=== PATIENT | male | born 1940 | race Caucasian/White ===

== ENCOUNTER 2017-04-26 10:58 | Outpatient (CLI) | payer MEDICARE, OTHER ==
--- NOTE | 2017-04-26 12:12 | Ultrasound Report ---
THYROID ULTRASOUND: 04/26/2017 CLINICAL INDICATION: Hypothyroidism. TECHNIQUE: Real-time scanning was performed with labor relations representative static images obtained. FINDINGS: The right lobe of the thyroid measures 4.2 x 1.7 x 1.8 cm, and the left lobe measures 3.8 x 1.5 x 1.4 cm. The isthmus measures 4 mm. No focal parenchymal lesion is seen. No adenopathy is appr eciated. IMPRESSION: NORMAL THYROID ULTRASOUND. JOB #: [id number] EXT JOB #:[id number]
== END 2017-04-26 10:59 | disposition home or self-care (01) ==
LOC: DI 10:58
PROVIDERS: ATTEND Family Medicine
DX: E03.9 Hypothyroidism, unspecified (principal)
CPT/HCPCS: 76536

== ENCOUNTER 2017-12-30 08:26 | Emergency (ER) | payer MEDICARE, OTHER ==
[2017-12-30] MEDS ORDERED: BUFFERED LIDOCAINE 10 ML SYRINGE SUBQ STA (09:39)
[2017-12-30] MEDS ORDERED: BACITRACIN OINT TOP STA (11:11)
--- NOTE | 2017-12-30 11:32 | ED Physician Documentation ---
History of Present Illness - Stated complaint Stated Complaint: HAND LAC - Chief complaint Chief Complaint: Laceration - Additonal information Additional information: hx from pt cut hand on metal trailer last night palmar aspect R index prox phalanx tdap UTD Review of Systems Skin: reports: Laceration (s) PD PAST MEDICAL HISTORY - Past Medical History Past Medical History: Yes Cardiovascular: Other - Present Medications Home Medications: Ambulatory Orders Medication Instructions Recorded Confirmed Cephalexin [Keflex] 500 mg PO Q6H 3 Days #11 capsule 12/30/17 amLODIPine [Norvasc] 25 mg PO DAILY 12/30/17 12/30/17 - Allergies Allergies/Adverse Reactions: Allergies Allergy/AdvReac Type Severity Reaction Status Date / Time No Known Drug Allergies Allergy Verified 12/30/17 08:50 - Social History Does the pt smoke?: No Smoking Status: Never smoker Does the pt drink ETOH?: Yes Does the pt have substance abuse?: No - Immunizations Immunizations are current?: Yes PD ED PE NORMAL - Vitals Vital signs reviewed: Yes - Extremities Extremities: Other (approx 3 cm U shaped lac palmar aspect prox phalanx R index , MSV intact, no FB seen or palpated, tendion fxn intact) Results - Vitals Vitals: Vital Signs - 24 hr 12/30/17 08:47 Temperature 36.6 C Heart Rate 82 Respiratory 16 Rate Blood Pressure 140/72 H O2 Saturation 97 Oxygen O2 Source Room air Procedures - Laceration (location) R index Length in cm: 3 Wound type: Curved Neurovascular status: Sensory intact Tendon involvement: Tendon intact Anesthesia: Lidocaine 1%, Volume - enter cc (4), OTH (dig block) Wound Preparation: Irrigated copiously NS (by nurse) Skin layer closure: Nylon, Size #-0 - enter number (4), Sutures - enter # (4) Other: Patient tolerated well, No complications, Neurovascular intact, Dressing applied, Tetanus UTD Complexity: Simple Departure - Departure Disposition: 01 Home, Self Care Clinical Impression: Laceration Condition: Good Instructions: ED Laceration Hand Follow-Up: Axel De Jseus MD [Primary Care Provider] - (for a wound check this week and for suture removal in about 10 days) Prescriptions: Cephalexin [Keflex] 500 mg PO Q6H 3 Days #11 capsule Comments: Because the injury happened last night, this wound is at risk for infection Your nurse carefully irrigated the wound and I prescribed prophylactic antibiotics to try and minimize the risk for infection. But it needs to be watched carefully - please see your PMD for a wound check this week. Please come back to the ER for any redness swelling discharge etc
[2017-12-30] MEDS ORDERED: cephALEXin 250 MG CAPSULE PO STA (11:33)
[2017-12-30 11:46] VITALS: BP 136/73
== END 2017-12-30 11:45 | disposition home or self-care (01) ==
LOC: ED 08:26
DX: S61.411A Laceration without foreign body of right hand, initial encounter (principal); W45.8XXA Other foreign body or object entering through skin, initial encounter
CPT/HCPCS: 12001; 99283; A9270

== ENCOUNTER 2018-05-07 11:31 | Outpatient (CLI) | payer MEDICARE, OTHER ==
--- NOTE | 2018-05-08 09:27 | XRAY Report ---
Procedure Date: 05/07/2018 Accession Number: [id number] / [id number] Procedure: XR - Hip w/Pelvis 2-3V LT CPT Code: FULL RESULT: EXAM: LEFT HIP AND PELVIS RADIOGRAPHY EXAM DATE: 05/07/2018 12:10 PM. HISTORY: LEFT HIP LOW BACK PAIN. COMPARISONS: None. TECHNIQUE: 1 view of the pelvis and 1 view of the hip. FINDINGS: Bones: Normal. No fracture or bone lesion. Joints: Minimal bilateral hip joint space narrowing with marginal lipping. Unremarkable SI joints and pubic symphysis. Prominent degenerative changes in the lower lumbar spine, including degenerative disk disease at L4-L5. Soft Tissues: Unremarkable. IMPRESSION: Minimal degenerative changes of the hips. RADIA
--- NOTE | 2018-05-08 09:30 | XRAY Report ---
Procedure Date: 05/07/2018 Accession Number: [id number] / [id number] Procedure: XR - Lumbar Spine 2 View CPT Code: FULL RESULT: EXAM: LUMBOSACRAL SPINE RADIOGRAPHY EXAM DATE: 05/07/2018 12:10 PM. CLINICAL HISTORY: LOW BACK Pain, lt HIP PAIN. COMPARISONS: 03/11/2009. TECHNIQUE: 2 views. FINDINGS: Alignment: Mild scoliosis. No listhesis. Bones: 5 lumbar vertebrae. No fractures or bone lesions. Disks: Marked disk space narrowing at L4-L5 with degenerative changes. Other lumbar disk spaces well preserved. Marginal lipping at all levels. Facets: Degenerative changes most marked at L4-L5 and L5-S1. Sacroiliac Joints: Unremarkable. Soft Tissues: Unremarkable. IMPRESSION: Mild scoliosis with lower lumbar degenerative changes including degenerative disk disease at L4-L5. RADIA
== END 2018-05-07 11:32 | disposition home or self-care (01) ==
LOC: DI 11:31
PROVIDERS: ATTEND Family Medicine
DX: M51.36 Other intervertebral disc degeneration, lumbar region (principal); M41.86 Other forms of scoliosis, lumbar region; M25.552 Pain in left hip
CPT/HCPCS: 72100

== ENCOUNTER 2022-08-16 10:15 | Outpatient (CLI) | payer MEDICARE, OTHER ==
--- NOTE | 2022-08-16 14:41 | XRAY Report ---
PROCEDURE: Lumbar Spine 2 View INDICATIONS: SPINE XRAY TECHNIQUE: 2 views of the lumbar spine were acquired. COMPARISON: 05/07/2018 FINDINGS: Bones: 5 [id number] vertebrae are present. There is normal bony alignment. No vertebral body compression fractures. No suspicious bony lesions. Extensive degenerative change, with multilevel d isc space loss and prominent lower lumbar facet arthropathy. Suspect possible canal stenosis. Soft tissues: Overlying bowel gas pattern is normal. No suspicious soft tissue calcifications. IMPRESSION: No evidence acute bony abnormality of the lumbar spine. Extensive degenerative change. S uspect canal stenosis. Comment: Lumbar spine MRI may potentially be helpful. Reviewed by: Anthony Terry MD on 08/16/2022 2:40 PM PST Approved by: Anthony Terry MD on 08/16/2022 2:40 PM PST Station ID: [id number]
--- NOTE | 2022-08-16 14:46 | XRAY Report ---
PROCEDURE: Hip w/Pelvis 2-3V RT INDICATIONS: LOW BACK PAIN TECHNIQUE: AP pelvis with AP and lateral view(s) of the right hip(s). COMPARISON: Pelvis and left hip dated 05/07/2018 FINDINGS: Bones: No fractures or dislocations. Pelvic ring appears intact. No suspicious bony lesions. Progr essive bilateral hip degenerative change. Moderately severe bilateral hip degenerative joint space lo ss. Soft tissues: The visualized bowel gas pattern is normal. No suspicious soft tissue calcifications. IMPRESSION: Progressive bilateral hip degenerative change with moderately severe joint space loss. N o evidence acute bony abnormality of the pelvis and right hip. If clinical suspicion and/or symptoms persist, further assessment with repeat plain films or advanced imaging (e.g., CT, MRI, or bone scan) may be helpful for further assessment. Reviewed by: Anthony Terry MD on 08/16/2022 2:45 PM PST Approved by: Anthony Terry MD on 08/16/2022 2:45 PM PST Station ID: [id number]
== END 2022-08-16 10:16 | disposition home or self-care (01) ==
LOC: DI 10:15
PROVIDERS: ATTEND Family Medicine
DX: M47.816 Spondylosis without myelopathy or radiculopathy, lumbar region (principal); M16.0 Bilateral primary osteoarthritis of hip

== ENCOUNTER 2023-01-08 12:48 | Outpatient (CLI) | payer MEDICARE, OTHER ==
--- NOTE | 2023-01-08 20:38 | XRAY Report ---
PROCEDURE: Knee 3 View RT INDICATIONS: PAIN IN KNEE TECHNIQUE: 3 views of the right knee(s) were acquired. COMPARISON: None. FINDINGS: Bones: No fractures or dislocations. No suspicious bony lesions. Definite osteophytes and possibl e narrowing of joint space. This is tricompartmental. Soft tissues: No knee joint effusion. No suspicious soft tissue calcifications. Vascular calcificat ions are present. IMPRESSION: No acute bony abnormality. 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 Reviewed by: Tom Carroll MD on 01/08/2023 8:37 PM PDT Approved by: Tom Carroll MD on 01/08/2023 8:37 PM PDT Station ID: [id number]
--- NOTE | 2023-01-08 20:41 | XRAY Report ---
PROCEDURE: Hip w/Pelvis 2-3V RT INDICATIONS: PAIN IN HIP TECHNIQUE: AP pelvis with lateral view(s) of the right hip(s). COMPARISON: None. FINDINGS: Bones: No fractures or dislocations. No suspicious bony lesions. Definite osteophytes and possibl e narrowing of joint space. Soft tissues: No suspicious soft tissue calcifications or masses. IMPRESSION: No acute fracture or dislocation identified. If there remains a high clinical concern for fracture, c onsider cross-sectional imaging now. If pain persists, consider repeat x-ray in 10-14 days or cross-s ectional imaging. 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 Reviewed by: Tom Carroll MD on 01/08/2023 8:39 PM PDT Approved by: Tom Carroll MD on 01/08/2023 8:39 PM PDT Station ID: [id number]
== END 2023-01-08 12:49 | disposition home or self-care (01) ==
LOC: DI 12:48
PROVIDERS: ATTEND Family Medicine
DX: M16.11 Unilateral primary osteoarthritis, right hip (principal); M17.11 Unilateral primary osteoarthritis, right knee